=== PATIENT | male | born 1960 | race Caucasian/White ===

== ENCOUNTER 2018-07-09 02:26 | Emergency (ER) | payer MEDICAID ==
--- NOTE | 2018-07-09 02:52 | ED Physician Chart ---
ED Chief Complaint/HPI - Patient Information Date Seen:: 07/09/18 Time Seen:: 02:35 Chief Complaint:: okay to book History of Present Illness:: Patient has apparently not vomited yet but he anticipates that he is going to vomit as he last injected heroin 12 hours ago. He feels like he is going to go into opioid withdrawal. Patient states he had 4 times hematuria yesterday morning. Patient was brought in by a chemical instrumentation officer for a medical clearance to book. No history of hematuria. Allergies:: Allergies Allergy/AdvReac Type Severity Reaction Status Date / Time No Known Allergies Allergy Verified 07/09/18 02:31 Vitals:: Vital Signs - 8 hr 07/09/18 02:30 Temp 97.9 F HR 90 RR 18 BP 142/94 O2 Sat % 98 Historian:: Patient Review:: Nurse's Note Reviewed ED Review of Systems - Review of Systems General/Constitutional: No fever, No chills Skin: No skin lesions Head: No headache Eyes: No loss of vision ENT: No earache Neck: No neck pain Cardio Vascular: No chest pain, No palpitations Pulmonary: No SOB GI: No nausea, No vomiting G/U: Hematuria Musculoskeletal: No bone or joint pain Endocrine: No polyuria, No polydipsia Psychiatric: No prior psych history Hematopoietic: No bruising Allergic/Immuno: No urticaria Neurological: No syncope ED Past Medical History - Past Medical History Past Medical History: No significant medical hx Family History: None Social History: Smoker, No Alcohol, Illicit Drug Use Surgical History: other (incision and drainage of a left buttocks abscess in 2014) Psychiatricy History: None Medication: Reviewed Family Medical History - Family Member Mother History Unknown: Yes ED Physical Exam - Physical Examination General/Constitutional: Awake, Well-developed, well-nourished, Alert, No distress Head: Atraumatic Eyes: Lids, conjuctiva normal, PERRL Other Eyes comments:: Pupils about 1-1/4 mm in diameter Skin: Nl inspection ENMT: External ears, nose nl, TM canals nl, Nasal exam nl, Oropharynx nl Other ENMT comments:: Full upper and lower dentures Neck: No nuchal rigidity Respiratory: Nl effort/Exclusion Cardio Vascular: RRR, No murmur, gallop, rubs, NL S1 S2 GI: No tenderness/rebounding/guarding : No CVA tenderness Extremities: Normal digits & nails Neuro/Psych: No focal deficits ED Assessment - Assessment General Assessment: Patient's had a 25-50 rbc's in his urine does not prevent him from receiving a medical clearance. ED Septic Shock - . Is Septic Shock (SBP<90, OR Lactate>4 mmol\L) present?: No - <6hrs of presentation: Vital Signs: Vital Signs - 8 hr 07/09/18 02:30 Temp 97.9 F HR 90 RR 18 BP 142/94 O2 Sat % 98 ED Reassessment (Disposition) - Reassessment Reassessment Condition:: Unchanged - Diagnosis Diagnosis:: Hematuria; medically clear for booking; opioid (heroin) addiction - Aftercare/Follow up Instructions Aftercare/Follow-Up Instructions:: Refer to Discharge Instructions - Patient Disposition Discharge/Transfer:: Shelter/Retirement Condition at Disposition:: Stable, Unchanged
[2018-07-09 02:57] LABS: URINE SOURCE RANDOM
[2018-07-09 02:59] LABS: URINE BILIRUBIN NEGATIVE (NEGATIVE); URINE BLOOD LARGE (NEGATIVE); URINE GLUCOSE (UA) NEGATIVE (NEGATIVE); URINE KETONE NEGATIVE (NEGATIVE); URINE LEUKOCYTE ESTERASE TRACE (NEGATIVE); URINE MICROSCOPIC INDICATED? YES; URINE NITRATE NEGATIVE (NEGATIVE); URINE PH 7.5 (4.6 - 8.0); URINE PROTEIN >=300 mg/dL (NEGATIVE)
[2018-07-09 03:16] LABS: URINE BACTERIA OCCASIONAL /hpf (NONE SEEN); URINE CLARITY HAZY (CLEAR); URINE COLOR ORANGE; URINE EPITHELIAL CELLS NONE SEEN /lpf (FEW); URINE RBC 25-50 /hpf (0-5); URINE WBC 0-2 /hpf (0-5)
== END 2018-07-09 03:48 | disposition still patient (30) ==
LOC: ER 02:26
DX: F11.20 Opioid dependence, uncomplicated (principal); R31.9 Hematuria, unspecified; F17.200 Nicotine dependence, unspecified, uncomplicated
CPT/HCPCS: 99283; 81001; Q0162; Z7502